=== PATIENT | male | born 1970 | race Caucasian/White ===

== ENCOUNTER 2020-09-03 05:26 | Inpatient (IN) | payer OTHER ==
[2020-08-27 16:54] LABS: BASOPHILS # (AUTO) 0.1 X10'3 (0-0.2); BASOPHILS % (AUTO) 0.7 % (0-1); EOSINOPHILS # (AUTO) 0.3 X10'3 (0-0.9); EOSINOPHILS % (AUTO) 2.3 % (0-6); LYMPHOCYTES # (AUTO) 2.7 X10'3 (1.1-4.8); LYMPHOCYTES % (AUTO) 24.4 % (21-51); MEAN CORPUSCULAR HEMOGLOBIN 27.9 PG (27.0-31.0); MEAN CORPUSCULAR HGB CONC 33.3 g/dL (33.0-36.5); MEAN CORPUSCULAR VOLUME 83.8 FL (78-98); MEAN PLATELET VOLUME 8.9 FL (7.4-10.4); MONOCYTES # (AUTO) 0.8 X10'3 (0-0.9); MONOCYTES % (AUTO) 7.2 % (2-12); NEUTROPHILS # (AUTO) 7.1 X10'3 (1.8-7.7); NEUTROPHILS % (AUTO) 65.4 % (42-75); PRE OP HEMATOCRIT 46.6 % (42.0-52.0); PRE OP HEMOGLOBIN 15.5 g/dL (14.0-17.9); PRE OP PLATELET COUNT 317 X10'3 (140-440); RED BLOOD COUNT 5.56 X10'6 (4.70-6.10); RED CELL DISTRIBUTION WIDTH 14.1 % (11.5-14.5)
[2020-08-27 17:07] LABS: ALBUMIN 4.3 G/DL (3.4-5.0); ALBUMIN/GLOBULIN RATIO 1.2 (1.1-1.5); ALKALINE PHOSPHATASE 50 IU/L (46-116); BLOOD UREA NITROGEN 18 MG/DL (7-18); BUN/CREATININE RATIO 20.7 (5.4-32.0); CALCIUM 9.1 MG/DL (8.5-10.1); CHLORIDE 104 MMOL/L (99-107); CREATININE 0.87 MG/DL (0.60-1.10); PRE OP ALT 56 U/L (30-65); PRE OP ANION GAP 12 (8-16); PRE OP AST 19 U/L (10-37); PRE OP BILIRUB, TOTAL 0.5 MG/DL (0.0-1.0); PRE OP GLUCOSE 79 MG/DL (70-104); PRE OP POTASSIUM 3.5 MMOL/L (3.4-5.1); PRE OP SODIUM 142 MMOL/L (135-145); TOTAL CARBON DIOXIDE 26.4 MMOL/L (24-32); TOTAL PROTEIN 7.9 G/DL (6.4-8.2); eGFR > 90 ML/MIN
[2020-09-03] VITALS (18 sets, daily range): BP systolic 103–132; BP diastolic 62–80
[~2020-09-03] VITALS: Ht 185.4 cm; Wt 119.1 kg
[~2020-09-03 05:26] MED LIST: ASPI-611 PO; ATOR40TA PO; CLON-529 PO; FENO145T38 PO; GABA300C PO; HYDR25TA4 PO; INSU100C10 SQ; INSU100I31 SQ; LIRA0.6P2 SUBCUT; LOSA100T57 PO; METF-436 PO; ringers solution, lacted 1,000 ML IV SCH
[2020-09-03] MEDS ORDERED: vancomycin 1,500 MG in NS 300ml IV soln IV ONE (05:30)
[2020-09-03] MEDS ORDERED: famotidine 20mg tablet PO ONE (05:30)
[2020-09-03] MEDS ORDERED: TRANEXAMIC ACID IV ONE ×5 (05:30→12:45)
[2020-09-03] MEDS ORDERED: ceFAZolin 2gm in dextrose, iso 50 ML IV ONE (05:30)
[2020-09-03] MEDS ORDERED: NORMAL SALINE IV ONE ×5 (05:30→12:45)
[2020-09-03] MEDS ORDERED: LIDOcaine 1% (10mg/ml) 2ml vial ONE (06:02)
[2020-09-03] MEDS ORDERED: fentaNYL/PF 50MCG/1 ML 2ML syringe ONE (06:59)
[2020-09-03] MEDS ORDERED: MIDAZolam 5mg/5ml vial ONE (06:59)
[2020-09-03] MEDS ORDERED: ROPIVAcaine 0.5% (5mg/ml) 30ml vial ONE ×2 (07:00→08:19)
[2020-09-03] MEDS ORDERED: propofol inj 20 ML IV ONE (07:00)
[2020-09-03] MEDS ORDERED: sevoflurane 250ml liquid IH ONE (07:01)
[2020-09-03] MEDS ORDERED: ketorolac trometh. 30mg/ml inj. ONE (08:19)
[2020-09-03] MEDS ORDERED: morphine 4 MG/ML inj SYRINge IV PRN (08:30)
[2020-09-03] MEDS ORDERED: ringers solution, lacted 1,000 ML IV SCH (08:30)
[2020-09-03] MEDS ORDERED: proCHLORperazine 10 MG/2 ml inj IV PRN (08:30)
[2020-09-03] MEDS ORDERED: ROPIVAcaine 0.2% (10 MG/5 ML) BOLUS INJECTION INTERSCALE PRN (08:30)
[2020-09-03] MEDS ORDERED: meperidine/PF 25mg/ml syringe IV PRN ×3 (08:30)
[2020-09-03] MEDS ORDERED: ondansetron/PF 4mg/2ml inj IV PRN ×2 (08:30→09:45)
[2020-09-03] MEDS ORDERED: morphine 2 MG/ML inj. syringe IV PRN (08:30)
[2020-09-03] MEDS ORDERED: ROPIVAcaine 0.2%/PF PUMP/bolus 550 ML INTERSCALE SCH (09:15)
--- NOTE | 2020-09-03 09:16 | NUR ---
RECEIVED FROM OR VIA BED WITH OHTF ACCOMPANIED BY ANESTHESIOLOGIST DR FAY, REPORT GIVEN. PT DROWSY BUT AROUSES WITH NO COMPLAINT OF PAIN. 20 GAUGE PIV L HAND PATENT AND RUNNING LR AT 100 ML/HR. DRESSING R SHOULDER CDI COMPRISED OF ISLAND DRESSING, SHOULDER WRAP AND SLING WITH POWDER PACK IN PLACE. PPULSES PRESENT, SKIN PINK AND WARM, BRISK CAP REFILL, RUE BLOCKED WITH ON Q CATHETER IN PLACE. SCDS APPLIED AND RESTING COMFORTABLY. BS 147.
[2020-09-03] MEDS ORDERED: acetaminophen 325mg tablet PO PRN (09:45)
[2020-09-03] MEDS ORDERED: oxyCODONE IR 5mg (immed. release) tablet PO PRN (09:45)
[2020-09-03] MEDS ORDERED: diphenhydrAMINE 25mg capsule PO PRN ×2 (09:45)
[2020-09-03] MEDS ORDERED: magnesium hydroxide 30ml (MOM) UD suspension PO PRN (09:45)
[2020-09-03] MEDS ORDERED: bisacodyl 10mg suppository rectal RC PRN (09:45)
[2020-09-03] MEDS ORDERED: HYDROmorphone 1 mg/ml syringe IV PRN (09:45)
[2020-09-03] MEDS ORDERED: HYDROmorphone inj. 0.5 MG/0.5 ML DISP.SYRIN IV PRN (09:45)
--- NOTE | 2020-09-03 10:03 | NUR ---
received report from irma torres in recovery
--- NOTE | 2020-09-03 10:16 | NUR ---
TRANSFERRED VIA BED WITH [facility] WITH ALL BED RAILS UP, REPORT GIVEN. PT AWAKE AND ALERT WITH NO COMPLAINT OF PAIN. 20 GAUGE PIV L HAND PATENT AND RUNNING LR AT 100 ML/HR. DRESSING R SHOULDER CDI COMPRISED OF ISLAND DRESSING, SHOULDER WRAP AND SLING WITH POWDER PACK IN PLACE. PPULSES PRESENT, SKIN PINK AND WARM, BRISK CAP REFILL, RUE BLOCKED WITH ON Q CATHETER IN PLACE. SCDS APPLIED AND RESTING COMFORTABLY. BS 147. LEFT IN CARE OF WILLIAM COHN.
[2020-09-03] MEDS: metFORMIN 500mg tablet PO SCH ×2 (12:52→20:21)
[2020-09-03] MEDS: gabapentin 300mg capsule PO SCH ×2 (12:52→20:21)
[2020-09-03] MEDS: insulin Lispro (HumaLOG) vial - multi-dose SQ SCH ×2 (12:55→20:18)
[2020-09-03] MEDS: acetaminophen 325mg tablet PO SCH ×2 (13:42→20:20)
[2020-09-03] MEDS: potassium cl 20mEq in 1/2 NS 1,000 ML IV SCH ×2 (13:43→17:45)
[2020-09-03] MEDS: ceFAZolin/D5W- 1GM premix 50 ML IV SCH (16:45)
--- NOTE | 2020-09-03 18:27 | NUR ---
gave report to irma barajas
[2020-09-03] MEDS: insulin glargine (Lantus) pen - multi-dose SQ SCH (20:00)
[2020-09-03] MEDS ORDERED: vancomycin/NS 1 GM ADD-VANTAGE 250 ML IV SCH (20:00)
[2020-09-03] MEDS: oxyCODONE IR 5mg (immed. release) tablet PO PRN (20:20)
[2020-09-03] MEDS ORDERED: sennosides 8.6mg tablet PO SCH (21:00)
[2020-09-03] MEDS ORDERED: fenofibrate 145mg tablet PO SCH (21:00)
[2020-09-03] MEDS ORDERED: atorvastatin 20mg tablet PO SCH (21:00)
[2020-09-04] MEDS: potassium cl 20mEq in 1/2 NS 1,000 ML IV SCH ×2 (00:13→09:45)
[2020-09-04] MEDS: ceFAZolin/D5W- 1GM premix 50 ML IV SCH (00:13)
[2020-09-04] MEDS: oxyCODONE IR 5mg (immed. release) tablet PO PRN ×2 (00:14→09:37)
[2020-09-04 02:00] VITALS: BP 118/76
[2020-09-04] MEDS: acetaminophen 325mg tablet PO SCH ×2 (02:46→07:42)
--- NOTE | 2020-09-04 05:00 | NUR ---
Patient in room [facility] 4024B. I have received report from SUKI Dewitt and had the opportunity to ask questions and assume patient care.
[2020-09-04 06:00] VITALS: BP 158/93
--- NOTE | 2020-09-04 06:09 | NUR ---
Problems reprioritized. Patient report given, questions answered & plan of care reviewed with SUKI Dewitt.
--- NOTE | 2020-09-04 06:25 | NUR ---
received report from irma barajas
[2020-09-04 06:48] LABS: BASOPHILS # (AUTO) 0.1 X10'3 (0-0.2); BASOPHILS % (AUTO) 0.5 % (0-1); EOSINOPHILS # (AUTO) 0.3 X10'3 (0-0.9); EOSINOPHILS % (AUTO) 2.4 % (0-6); HEMATOCRIT 38.4 % (42.0-52.0); HEMOGLOBIN 12.8 g/dl (14.0-17.9); LYMPHOCYTES # (AUTO) 1.9 X10'3 (1.1-4.8); LYMPHOCYTES % (AUTO) 16.6 % (21-51); MEAN CORPUSCULAR HEMOGLOBIN 28.3 PG (27.0-31.0); MEAN CORPUSCULAR HGB CONC 33.2 g/dL (33.0-36.5); MEAN CORPUSCULAR VOLUME 85.3 FL (78-98); MEAN PLATELET VOLUME 9.1 FL (7.4-10.4); NEUTROPHILS % (AUTO) 71.5 % (42-75); PLATELET COUNT 218 X10'3 (140-440); RED CELL DISTRIBUTION WIDTH 14.7 % (11.5-14.5); WHITE BLOOD COUNT 11.2 X10'3 (4.5-11.0)
[2020-09-04 07:08] LABS: ANION GAP 13 (8-16); CHLORIDE 106 MMOL/L (99-107); POTASSIUM 3.8 MMOL/L (3.5-5.1); SODIUM 141 MMOL/L (135-145); TOTAL CARBON DIOXIDE 22.2 MMOL/L (24-32)
[2020-09-04] MEDS: metFORMIN 500mg tablet PO SCH (07:41)
[2020-09-04] MEDS: gabapentin 300mg capsule PO SCH (07:41)
[2020-09-04] MEDS: insulin glargine (Lantus) pen - multi-dose SQ SCH (07:42)
[2020-09-04] MEDS: insulin Lispro (HumaLOG) vial - multi-dose SQ SCH (07:45)
--- NOTE | 2020-09-04 07:47 | NUR ---
scanner on computer not working, checked all meds prior to admin, continue to monitor
[2020-09-04] MEDS ORDERED: HYDROchlorothiazide 25mg tablet PO SCH (08:00)
[2020-09-04] MEDS ORDERED: cloNIDine 0.1 mg tablet PO SCH (08:00)
[2020-09-04] MEDS ORDERED: losartan 50mg tablet PO SCH (08:00)
[2020-09-04] MEDS ORDERED: LIRAGLUTIDE 0.6 MG/0.1 ML PEN.INJCTR SQ SCH (08:00)
[2020-09-04] MEDS ORDERED: aspirin 325mg tablet PO SCH (08:30)
[2020-09-04] MEDS ORDERED: ASPI-1 PO (09:32)
--- NOTE | 2020-09-04 09:38 | NUR ---
scanner on computer not to scan meds into [employer], checked meds prior to admin
[2020-09-04 10:00] VITALS: BP 122/72
--- NOTE | 2020-09-04 12:05 | NUR ---
pt d/c with instructions, understanding of instructions and w/all belongings in wheelchair accompanied by nursing staff to private vehicle to go home and f/u w/surgeon
[2020-09-05] MEDS ORDERED: acetaminophen 325mg tablet PO PRN (09:45)
== END 2020-09-04 11:30 | disposition home or self-care (01) | DRG 483 ==
LOC: PAS IN 05:26 → UNDOADMIN 05:26 → EDSTATUS 07:30 → PAS IN 09:44 → ORTHO 4S 10:46
PROVIDERS: ADMIT Orthopaedic Surgery; ATTEND Orthopaedic Surgery
PROC: 0LS30ZZ Reposition Right Upper Arm Tendon, Open Approach (ICD-10-PCS; 2020-09-03)
PROC: 3E0T3BZ Introduction of Anesthetic Agent into Peripheral Nerves and Plexi, Percutaneous Approach (ICD-10-PCS; 2020-09-03)
PROC: 0RRJ0JZ Replacement of Right Shoulder Joint with Synthetic Substitute, Open Approach (ICD-10-PCS; principal; 2020-09-03 07:01)
DX: M19.111 Post-traumatic osteoarthritis, right shoulder (principal); M75.111 Incomplete rotator cuff tear or rupture of right shoulder, not specified as traumatic; M25.511 Pain in right shoulder; M75.21 Bicipital tendinitis, right shoulder; I10 Essential (primary) hypertension; E78.5 Hyperlipidemia, unspecified
CPT/HCPCS: Z7506; Z7508; 36415; 80051; 80053; 82948; 83036; 85025; 87081; 87635; 93005; 97161; 97530; A4565; A4618; A7000; C1713; C1776; G0378; J0690; J1815; J1885; J2001; J2250; J2704; J2795; J3010; J3370; J3480; J7040; J7120; Q0163